=== PATIENT | male | born 1970 | race Caucasian/White ===

== ENCOUNTER 2019-02-13 03:42 | Emergency (ER) | payer SELFPAY ==
[~2019-02-13] VITALS: Ht 172.7 cm; Wt 104.3 kg
[~2019-02-13 03:42] MED LIST: ALBU.083IS IH; ALBU90OI INH; AMOX875 PO; CEPH500 PO; CLARITIN; CRUTCH3 USE; CYCL10 PO; DULO30 PO; FLUO20 PO; GUAI600T33 PO; HYDACE5 PO; HYDHCL25 PO; HYDPAM25 PO; IBUPROFEN; MELO7.5 PO; METAOI; NAPR500 PO; NAPR550 PO; OXYACE5T PO; OXYACE7.5T PO; OXYC5; OXYCODONE CR; PERCOCET; PERM5TC TOP; POTCHL20ER PO; PRED20 PO; PROC10 PO; RXCYCL10 PO; RXNAPNA550 PO; SULTRIDS PO; TAMS.4ER PO; TRAACE PO; Ventolin/Prove6.7 GM INH
[2019-02-13 04:08] LABS: Source, Urine Clean Catch
[2019-02-13 04:12] LABS: Bilirubin, Urine Neg (Neg); Blood, Urine 1+ (Neg); Glucose Qualitative, Urine Neg (Neg); Ketones, Urine Neg (Neg); Leukocyte Esterase, Urine 1+ (Neg); Nitrite, Urine Neg (Neg); Protein, Urine 1+ (Neg); Urobilinogen, Urine NORM (Normal)
[2019-02-13 04:18] LABS: Amorphous Light (0-Heavy); Appearance, Urine Hazy (Clear); Bacteria Few /hpf; Color, Urine Yellow (P-Yellow); Mucus Mod (0-Heavy); Red Blood Cells, Urine 0-2 /hpf (0-2); Squamous Epithelial Cells Not Seen /hpf (Few); White Blood Cells, Urine 0-2 /hpf (0-5)
[2019-02-13] MEDS ORDERED: CYCL10 PO (04:52)
[2019-02-13] MEDS ORDERED: LIDO700A20 TOP (04:52)
[2019-02-13] MEDS ORDERED: IBUP800 PO (04:52)
== END 2019-02-13 05:07 | disposition home or self-care (01) ==
LOC: ER 03:42
PROVIDERS: Emergency Medicine
DX: S29.012A Strain of muscle and tendon of back wall of thorax, initial encounter (principal); X50.0XXA Overexertion from strenuous movement or load, initial encounter; Z88.8 Allergy status to other drugs, medicaments and biological substances; Z91.018 Allergy to other foods; Z91.012 Allergy to eggs
CPT/HCPCS: 36415; 81001; 87086; 96374; 96375; 99284-25; J1885; J2405

== ENCOUNTER → 2019-02-14 | Outpatient (CLI) | payer SELFPAY ==
[~2019-02-14] MED LIST changes: +IBUP800 PO; +LIDO700A20 TOP
[2019-02-14 15:15] LABS: BASOPHILS ABSOLUTE AUTO 0.04 K/mm3 (0.00-0.23); BASOPHILS PERCENT AUTO 0 % (0-2); EOSINOPHILS ABSOLUTE AUTO 0.23 K/mm3 (0.00-0.68); EOSINOPHILS PERCENT AUTO 2 % (0-6); Hematocrit 39.7 % (37.0-53.0); Hemoglobin 13.4 g/dL (13.5-17.5); IMMATURE GRAN ABSOLUTE AUTO 0.07 K/mm3 (0.00-0.10); IMMATURE GRAN PERCENT AUTO 1 % (0-1); LYMPHOCYTES ABSOLUTE AUTO 1.54 K/mm3 (0.84-5.20); LYMPHOCYTES PERCENT AUTO 12 % (21-46); MONOCYTES ABSOLUTE AUTO 1.19 K/mm3 (0.16-1.47); MONOCYTES PERCENT AUTO 9 % (4-13); Mean Corpuscular HGB Conc 33.8 g/dL (31.5-36.5); Mean Corpuscular Volume 83 fL (80-100); Mean Platelet Volume 10.2 fL (9.1-12.4); NEUTROPHILS ABSOLUTE AUTO 10.11 K/mm3 (1.96-9.15); NEUTROPHILS PERCENT AUTO 77 % (41-73); Platelet Count 295 K/mm3 (150-400); RDW Coefficient Variation 13.7 % (11.7-14.2); RDW Standard Deviation 41.5 fL (35.1-46.3); Red Blood Cell Count 4.79 M/mm3 (4.30-5.90); White Blood Cell Count 13.18 K/mm3 (4.00-11.30)
[2019-02-14 15:27] LABS: Alanine Aminotransfer (ALT/SGP 47 U/L (12-78); Albumin, Blood 3.6 g/dL (3.4-5.0); Albumin/Globulin Ratio 0.9 (0.8-1.8); Alk Phos 172 U/L (40-126); Anion Gap 12 mmol/L (6-16); Aspartate Aminotrans (AST/SGOT 20 U/L (12-37); Bilirubin, Total 0.4 mg/dL (0.1-1.0); Blood Urea Nitrogen 16 mg/dL (8-24); Bun/Creatinine Ratio 19.3 (12.0-20.0); CO2, Blood 27 mmol/L (21-32); Calcium, Blood 9.2 mg/dL (8.5-10.1); Chloride, Blood 100 mmol/L (98-108); Creatinine, Blood 0.83 mg/dL (0.60-1.20); Globulin, Blood 4.1 g/dL (2.2-4.0); Glomerular Filtration Rate >60 (60-); Glucose, Blood 99 mg/dL (70-99); Sodium, Blood 139 mmol/L (136-145); Total Protein, Blood 7.7 g/dL (6.4-8.2)
== END | disposition home or self-care (01) ==
LOC: LAB SHORT 15:10 → LAB EV 15:10
PROVIDERS: Physician Assistant
DX: R10.31 Right lower quadrant pain (principal)
CPT/HCPCS: 80053; 85025; 85651

== ENCOUNTER → 2021-06-06 | Outpatient (CLI) | payer SELFPAY | END | disposition home or self-care (01) | LOC: LAB SHORT 12:42 | DX: R07.9 Chest pain, unspecified (principal) | CPT/HCPCS: 84484; 85379 ==

== ENCOUNTER → 2021-06-14 | Outpatient (CLI) | payer BC ==
[~2021-06-14] MED LIST changes: +BUPRENORPHIN-N1 EAC1 SL; +Doxycycline Mo100 M1; +PRED20
[2021-06-14 13:13] LABS: BASOPHILS ABSOLUTE AUTO 0.03 K/mm3 (0.00-0.23); BASOPHILS PERCENT AUTO 0 % (0-2); EOSINOPHILS PERCENT AUTO 0 % (0-6); Hematocrit 40.6 % (37.0-53.0); Hemoglobin 13.9 g/dL (13.5-17.5); IMMATURE GRAN ABSOLUTE AUTO 0.22 K/mm3 (0.00-0.10); IMMATURE GRAN PERCENT AUTO 2 % (0-1); LYMPHOCYTES ABSOLUTE AUTO 0.92 K/mm3 (0.84-5.20); LYMPHOCYTES PERCENT AUTO 10 % (21-46); MONOCYTES ABSOLUTE AUTO 0.57 K/mm3 (0.16-1.47); MONOCYTES PERCENT AUTO 6 % (4-13); Mean Corpuscular HGB 28.5 pg (26.0-34.0); Mean Corpuscular HGB Conc 34.2 g/dL (31.5-36.5); Mean Corpuscular Volume 83 fL (80-100); Mean Platelet Volume 9.9 fL (9.1-12.4); NEUTROPHILS ABSOLUTE AUTO 7.41 K/mm3 (1.96-9.15); NEUTROPHILS PERCENT AUTO 81 % (41-73); Platelet Count 245 K/mm3 (150-400); RDW Coefficient Variation 13.5 % (11.7-14.2); RDW Standard Deviation 40.9 fL (35.1-46.3); Red Blood Cell Count 4.88 M/mm3 (4.30-5.90); White Blood Cell Count 9.15 K/mm3 (4.00-11.30)
[2021-06-14 13:29] LABS: Alanine Aminotransfer (ALT/SGP 43 U/L (12-78); Albumin, Blood 3.2 g/dL (3.4-5.0); Albumin/Globulin Ratio 0.7 (0.8-1.8); Alk Phos 117 U/L (40-126); Anion Gap 11 mmol/L (6-16); Aspartate Aminotrans (AST/SGOT 28 U/L (12-37); Bilirubin, Total 0.5 mg/dL (0.1-1.0); Blood Urea Nitrogen 17 mg/dL (8-24); Bun/Creatinine Ratio 19.1 (12.0-20.0); CO2, Blood 25 mmol/L (21-32); Calcium, Blood 8.5 mg/dL (8.5-10.1); Chloride, Blood 97 mmol/L (98-108); Creatinine, Blood 0.89 mg/dL (0.60-1.20); Globulin, Blood 4.8 g/dL (2.2-4.0); Glomerular Filtration Rate >60 (60-); Glucose, Blood 105 mg/dL (70-99); Potassium, Blood 4.3 mmol/L (3.5-5.5); Sodium, Blood 133 mmol/L (136-145)
[2021-06-14 13:36] LABS: Troponin I <0.017 ng/mL (0.000-0.040)
== END | disposition home or self-care (01) ==
LOC: LAB 13:03 → LAB SHORT 13:03
PROVIDERS: Physician Assistant Medical
DX: R07.9 Chest pain, unspecified (principal)
CPT/HCPCS: 80053; 84484; 85025; 85379

== ENCOUNTER 2021-06-16 16:26 | Inpatient (IN) | payer BC ==
[~2021-06-16] VITALS: Ht 172.7 cm; Wt 113.4 kg
[~2021-06-16 16:26] MED LIST changes: -BUPRENORPHIN-N1 EAC1 SL; -Doxycycline Mo100 M1; -PRED20
[2021-06-16] MEDS ORDERED: Doxycycline Mo100 M1 (16:58)
[2021-06-16] MEDS ORDERED: BUPRENORPHIN-N1 EAC1 SL (16:58)
[2021-06-16 18:03] LABS: BASOPHILS ABSOLUTE AUTO 0.05 K/mm3 (0.00-0.23); BASOPHILS PERCENT AUTO 0 % (0-2); EOSINOPHILS PERCENT AUTO 0 % (0-6); Hemoglobin 14.3 g/dL (13.5-17.5); IMMATURE GRAN ABSOLUTE AUTO 0.83 K/mm3 (0.00-0.10); IMMATURE GRAN PERCENT AUTO 4 % (0-1); LYMPHOCYTES ABSOLUTE AUTO 0.72 K/mm3 (0.84-5.20); LYMPHOCYTES PERCENT AUTO 4 % (21-46); MONOCYTES ABSOLUTE AUTO 0.99 K/mm3 (0.16-1.47); MONOCYTES PERCENT AUTO 5 % (4-13); Mean Corpuscular HGB 27.8 pg (26.0-34.0); Mean Corpuscular HGB Conc 33.3 g/dL (31.5-36.5); Mean Corpuscular Volume 84 fL (80-100); Mean Platelet Volume 9.5 fL (9.1-12.4); NEUTROPHILS ABSOLUTE AUTO 16.84 K/mm3 (1.96-9.15); NEUTROPHILS PERCENT AUTO 87 % (41-73); Platelet Count 288 K/mm3 (150-400); RDW Coefficient Variation 13.2 % (11.7-14.2); RDW Standard Deviation 40.6 fL (35.1-46.3); Red Blood Cell Count 5.15 M/mm3 (4.30-5.90); White Blood Cell Count 19.43 K/mm3 (4.00-11.30)
[2021-06-16 18:18] LABS: Anion Gap 8 mmol/L (6-16); Blood Urea Nitrogen 25 mg/dL (8-24); Bun/Creatinine Ratio 37.2 (12.0-20.0); CO2, Blood 27 mmol/L (21-32); Calcium, Blood 8.6 mg/dL (8.5-10.1); Chloride, Blood 103 mmol/L (98-108); Creatinine, Blood 0.67 mg/dL (0.60-1.20); Glomerular Filtration Rate >60 (60-); Glucose, Blood 123 mg/dL (70-99); Potassium, Blood 4.4 mmol/L (3.5-5.5); Sodium, Blood 138 mmol/L (136-145)
[2021-06-16] MEDS ORDERED: RAYOS PO (22:27)
--- NOTE | 2021-06-17 06:34 | NUR ---
PATIENT IS PLEASANT A&OX4 AND COOPERATIVE WITH HIS CARE. ARRIVED FROM ER ON 10 LITERS HIGH FLOW OXYMIZER GIVING HIM SATURATIONS IN THE LOW 90'S. VSS. 1ST DOSE REMDESVIR GIVEN ON ARRIVAL. PATIENT VOIDING CLEAR YELLOW URINE IN URINAL. HE IS REQUESTING SALINE NASAL SPRAY AT THIS TIME, AND BECAUSE IT IS THE CHANGE OF SHIFT FOR THE HOSPITALIST, I WILL PASS THIS REQUEST ON THE THE DAY RNNigel WINSTON ALSO TOOK TWO DOSES OF GUAFENISEN/DEXTROMETHORPHAN. LUNG SOUNDS ARE DIM THROUGHOUT WITH SCATTERED CRACKLES AND SLIGHTLY DIMINISHED SOUNDS IN THE LEFT UPPER LOBE
--- NOTE | 2021-06-17 18:33 | NUR ---
THE PATIENT IS ALERT AND ORIENTED X 4. DENIES PAIN. O2 SAT 88-90% ON HIGH FLOW 10L. HE HAS REPORTED FEELING 'WINDED' AT REST. HE RECEIVED BREATHING TREATMENT X 1. OTHERWISE VS WNL. HE COMPLAINED OF COUGH X 1 AND RECEIVED PRN COUGH MED WHICH WAS BENEFICIAL. HE IS INDEPENDENT WITH ACTIVITIES BUT 02 DECREASES WITH ACTIVITIES. HL TO R FOREARM THAT IS PATENT. HE HAD UNEVENTFUL EVENING.
[2021-06-18 05:29] LABS: BASOPHILS ABSOLUTE AUTO 0.13 K/mm3 (0.00-0.23); BASOPHILS PERCENT AUTO 1 % (0-2); EOSINOPHILS ABSOLUTE AUTO 0.03 K/mm3 (0.00-0.68); EOSINOPHILS PERCENT AUTO 0 % (0-6); Hematocrit 43.6 % (37.0-53.0); Hemoglobin 14.2 g/dL (13.5-17.5); IMMATURE GRAN ABSOLUTE AUTO 1.04 K/mm3 (0.00-0.10); IMMATURE GRAN PERCENT AUTO 7 % (0-1); LYMPHOCYTES ABSOLUTE AUTO 1.99 K/mm3 (0.84-5.20); LYMPHOCYTES PERCENT AUTO 14 % (21-46); MONOCYTES ABSOLUTE AUTO 0.91 K/mm3 (0.16-1.47); MONOCYTES PERCENT AUTO 6 % (4-13); Mean Corpuscular HGB 27.8 pg (26.0-34.0); Mean Corpuscular HGB Conc 32.6 g/dL (31.5-36.5); Mean Corpuscular Volume 85 fL (80-100); Mean Platelet Volume 10.3 fL (9.1-12.4); NEUTROPHILS ABSOLUTE AUTO 10.44 K/mm3 (1.96-9.15); NEUTROPHILS PERCENT AUTO 72 % (41-73); Platelet Count 274 K/mm3 (150-400); RDW Coefficient Variation 13.2 % (11.7-14.2); RDW Standard Deviation 41.4 fL (35.1-46.3); Red Blood Cell Count 5.11 M/mm3 (4.30-5.90); White Blood Cell Count 14.54 K/mm3 (4.00-11.30)
[2021-06-18 06:16] LABS: BAND PERCENT MAN 1 % (0-8); BASOPHILS PERCENT MAN 0 % (0-2); EOSINOPHILS PERCENT MAN 0 % (0-6); LYMPHOCYTES ABSOLUTE MAN 1.89 K/mm3 (0.84-5.20); LYMPHOCYTES PERCENT MAN 13 % (21-46); MONOCYTES ABSOLUTE MAN 0.87 K/mm3 (0.16-1.47); MONOCYTES PERCENT MAN 6 % (4-13); MYELOCYTE ABSOLUTE MAN 0.58 K/mm3 (0.00-0.00); MYELOCYTE PERCENT MAN 4 % (0-0); NEUTROPHILS ABSOLUTE MAN 11.19 K/mm3 (1.96-9.15); SEG NEUTROPHILS PERCENT MAN 76 % (41-73); TOTAL CELLS COUNTED 100
[2021-06-18 06:33] LABS: Alanine Aminotransfer (ALT/SGP 58 U/L (12-78); Albumin, Blood 2.8 g/dL (3.4-5.0); Albumin/Globulin Ratio 0.6 (0.8-1.8); Alk Phos 106 U/L (50-136); Anion Gap 7 mmol/L (6-16); Aspartate Aminotrans (AST/SGOT 22 U/L (12-37); Bilirubin, Total 0.5 mg/dL (0.1-1.0); Blood Urea Nitrogen 23 mg/dL (8-24); Bun/Creatinine Ratio 33.5 (12.0-20.0); CO2, Blood 30 mmol/L (21-32); Calcium, Blood 8.6 mg/dL (8.5-10.1); Chloride, Blood 100 mmol/L (98-108); Creatinine, Blood 0.69 mg/dL (0.60-1.20); Globulin, Blood 4.6 g/dL (2.2-4.0); Glomerular Filtration Rate >60 (60-); Glucose, Blood 81 mg/dL (70-99); Potassium, Blood 4.2 mmol/L (3.5-5.5); Sodium, Blood 137 mmol/L (136-145); Total Protein, Blood 7.4 g/dL (6.4-8.2)
--- NOTE | 2021-06-18 07:26 | NUR ---
PATIENT IS ALERT AND ORIENTED, PLEASANT AND COOPERATIVE. DENIES PAIN OR DISCOMFORT.FULL CODE, ADMITTED FOR COVID+. PATIENT HAS HX OF DEPRESSION, MARIJUANA USE. PATIENT ON HIGH FLOW 10L O2, SAT WNL, REPORTS SOB WITH EXERSION. PATIENT C/O COUGH AND RECEIVED ROBITUSINE WITH GOOD EFFECT.
--- NOTE | 2021-06-18 17:15 | NUR ---
SHIFT SUMMARY PT RESTING IN BED THE MAJORITY OF THE DAY. DESATS WITH EXERTION. URINAL AT BEDSIDE. PT SATING IN THE 90S ON 12L O2 VIA NC. REPORTED WHEEZING THIS AFTERNOON. RT WAS NOTIFIED & GAVE BREATHING TX. NO OTHER ACUTE CHANGES IN ASSESSMENT AT THIS TIME. VS REVIEWED. CALL LIGHT IN REACH. DENIES OTHER NEEDS AT THIS TIME.
--- NOTE | 2021-06-18 18:40 | NUR ---
O2 TITRATED UP CONT PULSE OX APPLIED TO PT. PT SATING AT 86-87% ON 12L AT THIS TIME. PT INCREASED TO 15L O2 VIA HIGH FLOW. NOW SATING AT 89% RT NOTIFIED.
--- NOTE | 2021-06-19 06:20 | NUR ---
PATIENT CONTINUES ON 15L 02 WITH NON REBREATHER ON DUE TO PATIENT DESATING TO THE LOW 80s. PATIENT DESAT WITH ACTIVITY, ENCOURAGED TO LIE ON PRONE POSITION FOR BETTER OXYGEN CIRCULATION. PATIENT REQUESTED AND RECIEVED PRN ROBITUSSIN WITH GOOD EFFECT. VITAL SIGNS WNL, WILL CONTINUE TO MONITOR AND ENCOURAGED.
--- NOTE | 2021-06-19 14:33 | NUR ---
patient laying on his side, sats 95% on airvo, no distress
--- NOTE | 2021-06-19 18:27 | NUR ---
PATIENT REPORTS BETTER BREATHING WITH THE AIRVO ON, ATE ALL MEALS, MAKES NEEDS KNOWN, LS CRACKLES, ENCOURAGED COUGHING, VS REVEIWED, SATS 96% ON 50L AND 80% AIRVO, CALL LIGHT WITH IN REACH, WCTM
--- NOTE | 2021-06-20 05:56 | NUR ---
SHIFT SUMMARY PATIENT ALERT AND ORIENTED. NO COMPLAINTS OF PAIN, ON AIRVO MANAGED BY RT. NO ACUTE ISSUES NOTED OVERNIGHT. CALL LIGHT WITHIN REACH. REPORT GIVEN TO ONCOMING RN.
--- NOTE | 2021-06-20 18:28 | NUR ---
makes needs known, pleasant to care, indepedantly proning and using IS, large bm today, ls loose and rattling, vs reviewed, no changes, wctm
--- NOTE | 2021-06-21 06:22 | NUR ---
SHIFT SUMMARY PATIENT ALERT AND ORIENTED. HAD NO COMPLAINTS OF PAIN OR SHORTNESS OF BREATH. CONTINUES ON AIRVO, MONITORED BY RT. NO ACUTE ISSUES NOTED OVERNIGHT. CALL LIGHT WITHIN REACH.REPORT GIVEN TO ONCOMING RN.
--- NOTE | 2021-06-21 18:34 | NUR ---
PT QUITE PLEASANT TODAY, NO NEW CONCERNS NOTED. NO C/O PAIN. STATES HAS BEEN UP SOME. CONTINUES ON AIRVO AT 50 L AND 60 FIO2. BED IN LOW POSITION, CALL LITE IN REACH, CALLS APPROP
[2021-06-22 05:28] LABS: Hematocrit 38.4 % (37.0-53.0); Hemoglobin 12.7 g/dL (13.5-17.5); Mean Corpuscular HGB 28.2 pg (26.0-34.0); Mean Corpuscular HGB Conc 33.1 g/dL (31.5-36.5); Mean Corpuscular Volume 85 fL (80-100); Mean Platelet Volume 9.9 fL (9.1-12.4); Platelet Count 306 K/mm3 (150-400); RDW Coefficient Variation 12.8 % (11.7-14.2); RDW Standard Deviation 39.7 fL (35.1-46.3); Red Blood Cell Count 4.51 M/mm3 (4.30-5.90); White Blood Cell Count 11.19 K/mm3 (4.00-11.30)
[2021-06-22 05:59] LABS: Anion Gap 7 mmol/L (6-16); Blood Urea Nitrogen 19 mg/dL (8-24); Bun/Creatinine Ratio 30.8 (12.0-20.0); CO2, Blood 27 mmol/L (21-32); Calcium, Blood 8.6 mg/dL (8.5-10.1); Chloride, Blood 101 mmol/L (98-108); Creatinine, Blood 0.62 mg/dL (0.60-1.20); Glomerular Filtration Rate >60 (60-); Glucose, Blood 185 mg/dL (70-99); Potassium, Blood 4.1 mmol/L (3.5-5.5); Sodium, Blood 135 mmol/L (136-145)
--- NOTE | 2021-06-22 18:27 | NUR ---
Shift Summary A/Ox4, pleasant and cooperative. Up in chair and in room independently. Airvo settings 50L 40% FiO2, sats > 95%. Appetite is good, no new complaints or concerns. VSS, afebrile.
--- NOTE | 2021-06-23 04:56 | NUR ---
NO ACUTE CHANGES OR SIGNIFICANT EVENTS OCCURRED OVERNIGHT. OXYGEN MAINTAINED WELL ON AIRVO 50L/40%
--- NOTE | 2021-06-23 18:09 | NUR ---
Shift Summary Respiratory status improved quite significantly today. Was on Airvo, now on 4L NC with sats @ 96-97%. With activity, sats sometimes can drop to low 89-92%, but quickly recovers. No acute concerns. Up to bedside commode, able to make needs know. Good appetite. WCTM.
--- NOTE | 2021-06-24 05:03 | NUR ---
ABLE TO WEAN OXYGEN FROM 4 LITERS TO 2 LITERS OVERNIGHT. PATIENT TOLERATED VERY WELL. OXYGEN MAINTAINED GREATER THAN 93% ON 2 LITERS. NO SIGNIFICANT EVENTS OVERNIGHT.
[2021-06-24] MEDS ORDERED: DEXA6 (11:57)
--- NOTE | 2021-06-24 12:39 | NUR ---
1210 DISCHARGED HOME. VERBALIZED UNDERSTANDING AND TEACHBACK METHOD UTILIZED. ALL QUESTIONS ANSWERED. ALL PATIENT BELONGINGS TRANSPORTED OUT WITH PATIENT.
== END 2021-06-24 12:10 | disposition home or self-care (01) | DRG 177 ==
LOC: ER 16:26 → MEDS 20:13 → ENPENDDIS 06-24 10:49 → MEDS 06-24 12:10
PROVIDERS: Internal Medicine; Student in an Organized Health Care Education/Training Program; ADMIT Internal Medicine
PROC: 8E0ZXY6 Isolation (ICD-10-PCS; principal; 2021-06-16)
PROC: 3E0333Z Introduction of Anti-inflammatory into Peripheral Vein, Percutaneous Approach (ICD-10-PCS; 2021-06-16)
PROC: XW033E5 Introduction of Remdesivir Anti-infective into Peripheral Vein, Percutaneous Approach, New Technology Group 5 (ICD-10-PCS; 2021-06-16)
DX: U07.1 COVID-19 (principal); J12.82 Pneumonia due to coronavirus disease 2019; J96.01 Acute respiratory failure with hypoxia; F32.9 Major depressive disorder, single episode, unspecified; J45.909 Unspecified asthma, uncomplicated; Z91.018 Allergy to other foods; Z91.012 Allergy to eggs; Z88.8 Allergy status to other drugs, medicaments and biological substances; Z91.09 Other allergy status, other than to drugs and biological substances; Z98.890 Other specified postprocedural states
CPT/HCPCS: 36415; 71045; 71260; 80048; 80053; 85025; 85027; 87070; 87205; 93005; 93010; 94640; 94761; 94762; 96372-59; 96374-59; 99285-25; A9270; J1100; J1650; J7050; Q9967